=== PATIENT | female | born 1970 | race Caucasian/White ===

== ENCOUNTER 2020-06-27 16:52 | Outpatient (CLI) | payer BC | END 2020-06-27 16:53 | disposition home or self-care (01) | LOC: COV 16:52 | PROVIDERS: ATTEND Family Medicine | DX: R53.83 Other fatigue (principal); J02.9 Acute pharyngitis, unspecified; R19.7 Diarrhea, unspecified; R09.81 Nasal congestion; J34.89 Other specified disorders of nose and nasal sinuses; Z20.828 Contact with and (suspected) exposure to other viral communicable diseases ==

== ENCOUNTER 2023-10-17 08:00 | Outpatient (CLI) | payer BC ==
--- NOTE | 2023-10-18 08:50 | XRAY Report ---
PROCEDURE: Finger(s) RT INDICATIONS: RIGHT RING FINGER CONTUSION TECHNIQUE: AP hand, 2 views of the fourth and fifth finger(s) acquired. COMPARISON: None. FINDINGS: Bones: Mildly comminuted, mildly displaced distal tuft fracture of the distal phalanx of the fourth finger, with fracture extending vertically somewhat into the shaft of the phalanx. No suspicious bony lesions. Soft tissues: No suspicious soft tissue calcifications or masses. IMPRESSION: Bilaterally comminuted, mildly displaced distal tuft fracture of distal phalanx of fourth finger. Reviewed by: Eduardo Conn MD on 10/18/2023 8:48 AM PDT Approved by: Eduardo Conn MD on 10/18/2023 8:48 AM PDT Station ID: [id number]
== END 2023-10-17 23:59 | disposition home or self-care (01) ==
LOC: DI.S 08:00
PROVIDERS: ATTEND Physician Assistant Medical
DX: S60.141A Contusion of right ring finger with damage to nail, initial encounter (principal); S62.634A Displaced fracture of distal phalanx of right ring finger, initial encounter for closed fracture